=== PATIENT | male | born 1960 ===

== ENCOUNTER 2018-09-09 10:11 | Emergency (ER) | payer SELFPAY ==
[2018-09-09 10:25] VITALS: BMI 26.8
[2018-09-09 10:31] VITALS: O2SAT 98
[2018-09-09] MEDS ORDERED: Albuterol-Ipratrop 3 mg / 0.5 (3 ml) UD INH STA (10:56)
--- NOTE | 2018-09-09 11:03 | ED PDOC ---
HPI: CCC, URI, Sore Throat Time Seen by Provider: 09/09/18 10:31 Chief Complaint (Nursing): Cough, Cold, Congestion Chief Complaint (Provider): Cough History Per: Patient History/Exam Limitations: no limitations Additional Complaint(s): Pt reports cough X 2 days, unable to sleep secondary to cough, associated with nasal congestion. Denies fever, CP, difficulty breathing. Past Medical History Reviewed: Nursing Documentation, Vital Signs Vital Signs: Last Vital Signs Temp 97 F L 09/09/18 10:23 Pulse 63 09/09/18 10:23 Resp BP 130/71 09/09/18 10:23 Pulse Ox 98 09/09/18 10:29 - Medical History PMH: HTN, Hypercholesterolemia Denies: Chronic Kidney Disease - Surgical History Surgical History: Appendectomy - Family History Family History: States: Unknown Family Hx - Social History Current smoker - smoking cessation education provided: No - Immunization History Hx Tetanus Toxoid Vaccination: No Hx Influenza Vaccination: No Hx Pneumococcal Vaccination: No - Home Medications Home Medications: Ambulatory Orders Medication Instructions Recorded Carvedilol [Coreg] 25 mg PO DAILY 10/28/17 Albuterol Sulfate [Proair 90 mcg IH Q6H #1 aer.pow.ba 11/01/17 Respiclick] Azithromycin [Zithromax] 250 mg PO DAILY #7 tab 11/01/17 Fluticasone/Vilanterol [Breo 1 each IH DAILY #1 blst.w.dev 11/01/17 Ellipta 100-25 Mcg INH] amLODIPine [Norvasc] 10 mg PO DAILY #30 tab 11/01/17 predniSONE [predniSONE Tab] 10 mg PO DAILY #15 tab 11/01/17 Losartan [Cozaar] 100 mg PO DAILY 01/12/18 Oxymetazoline 0.05% [Afrin 0.05%] 1 spr NS Q12H PRN #1 bottle 01/12/18 Pseudoephedrine HCl [Sudafed] 30 mg PO QID PRN #20 tablet 01/12/18 Sulfamethoxazole/Trimethoprim 1 tab PO BID #14 tab 01/12/18 [Bactrim DS 800 mg-160 mg] Albuterol 0.083% [Albuterol 0.083% 3 ml IH Q6H PRN #30 neb 09/09/18 Inhal Alida (2.5 mg/3 ml) UD] Albuterol HFA [Ventolin HFA 90 2 puff IH [id number] PRN #1 bottle 09/09/18 mcg/actuation (8 g)] Azithromycin [Zithromax] 250 mg PO DAILY #4 tab 09/09/18 Nebulizer [Compact Compressor 1 dev XX PRN PRN #1 dev 09/09/18 Nebulizer] Prednisone 50 mg PO DAILY #4 tab 09/09/18 - Allergies Allergies/Adverse Reactions: Allergies Allergy/AdvReac Type Severity Reaction Status Date / Time seasonal Allergy Mild COUGH Uncoded 09/09/18 10:28 Curb-65 Severity Score - CURB-65 Severity Score Confusion: No Bun >19mg/dl (>7mmol/L): No Respiratory Rate greater than/equal to 30: No Systolic BP <90 or Diastolic BP less than/equal 60mmHg: No Age >64: No Curb-65 Score: 0 Percentage 30-day mortality: 0.6% Review of Systems Constitutional: Negative for: Fever, Chills Cardiovascular: Negative for: Chest Pain, Palpitations Respiratory: Positive for: Cough. Negative for: Shortness of Breath, Hemoptysis, Sputum, Wheezing Gastrointestinal: Negative for: Nausea, Vomiting, Abdominal Pain, Diarrhea Musculoskeletal: Negative for: Back Pain Skin: Negative for: Rash, Lesions Neurological: Negative for: Headache Physical Exam - Reviewed Nursing Documentation Reviewed: Yes Vital Signs Reviewed: Yes - Physical Exam Appears: Positive for: Well, No Acute Distress Skin: Positive for: Normal Color, Warm Eye Exam: Positive for: Normal appearance, EOMI, PERRL Cardiovascular/Chest: Positive for: Regular Rate, Rhythm Respiratory: Positive for: Wheezing. Negative for: Decreased Breath Sounds, Rales, Rhonchi, Respiratory Distress Extremity: Positive for: Normal ROM Neurologic/Psych: Positive for: Alert, Oriented - Laboratory Results Result Diagrams: 09/09/18 11:05 09/09/18 11:05 - ECG O2 Sat by Pulse Oximetry: 98 Pulse Ox Interpretation: Normal Medical Decision Making Medical Decision Makin yo male with cough and wheezing. - labs - EKG - CXR - Albuterol/atrovent nebs - Solumedrol Accession No. : [id number] Patient Name / ID : MANYOR TRIPATHI / [id number] Exam Date : 09/09/2018 10:50:09 ( Approved ) Study Comment : Sex / Age : M / 58Y Creator : Geovanny Baca MD Dictator : Geovanny Baca MD Floor Tech : Associate Professor Of Theatre : Geovanny Baca MD Approver2 : Report Date : 09/09/2018 12:42:32 My Comment : Date of service: 09/09/2018 HISTORY: Cough COMPARISON: No prior. TECHNIQUE: Chest PA and lateral FINDINGS: LUNGS: Hyperinflation, manifestations of COPD. No active pulmonary disease. PLEURA: No significant pleural effusion identified. No pneumothorax apparent. CARDIOVASCULAR: No aortic atherosclerotic calcification present No radiographic findings to suggest acute or significant cardiovascular disease. OSSEOUS STRUCTURES: No significant abnormalities. VISUALIZED UPPER ABDOMEN: Normal. OTHER FINDINGS: None. IMPRESSION: No active disease. Disposition - Clinical Impression Clinical Impression: Acute bronchitis - Disposition Referrals: [facility] [place] [Outside] Disposition: Routine/Home Disposition Time: 17:30 Condition: STABLE Prescriptions: Albuterol HFA [Ventolin HFA 90 mcg/actuation (8 g)] 2 puff IH [id number] PRN #1 bottle PRN Reason: Shortness Of Breath Albuterol 0.083% [Albuterol 0.083% Inhal Alida (2.5 mg/3 ml) UD] 3 ml IH Q6H PRN #30 neb PRN Reason: Shortness Of Breath Azithromycin [Zithromax] 250 mg PO DAILY #4 tab Nebulizer [Compact Compressor Nebulizer] 1 dev XX PRN PRN #1 dev PRN Reason: Shortness Of Breath Prednisone 50 mg PO DAILY #4 tab Instructions: Acute Bronchitis Forms: [facility] (Azeri) Print Language: SYRIAC
[2018-09-09] MEDS ORDERED: Albuterol-Ipratrop 3 mg / 0.5 (3 ml) UD ONE (11:16)
[2018-09-09 11:18] LABS: BASO # 0.1 K/uL (0.0-0.2); BASO % 1.2 % (0.0-2.0); EOS # 1.3 K/uL (0.0-0.7); EOS % 20.9 % (0.0-4.0); LYMPH # 1.2 K/uL (1.0-4.3); MEAN CELL VOLUME 83.1 fl (80.0-94.0); MEAN CORPUSCULAR HEMOGLOBIN 28.6 pg (27.0-31.0); MEAN CORPUSCULAR HGB CONC 34.4 g/dL (33.0-37.0); MEAN PLATELET VOLUME 8.3 fl (7.2-11.7); MONO # 0.5 K/uL (0.0-0.8); MONO % 8.1 % (0.0-10.0); NEUT # 3.2 K/uL (1.8-7.0); NEUT % 50.8 % (50.0-75.0); NRBC % 0.1 % (0.0-0.0); PLATELET COUNT 311 K/uL (130-400); RBC 5.23 Mil/uL (4.40-5.90); RED CELL DISTRIBUTION WIDTH 12.9 % (11.5-14.5); WHITE BLOOD COUNT 6.3 K/uL (4.8-10.8)
[2018-09-09 11:34] LABS: ALB/GLOB RATIO 1.2 (1.0-2.1); ALBUMIN 4.1 g/dL (3.5-5.0); ALT/SGPT 27 U/L (21-72); AST/SGOT 28 U/L (17-59); BLOOD UREA NITROGEN 18 mg/dl (9-20); CALCIUM 9.4 mg/dL (8.4-10.2); GFR NON-AFRICAN AMERICAN > 60
[2018-09-09 12:07] LABS: EOSINOPHIL 21 % (0-7); LYMPHOCYTE 22 % (20-50); MONOCYTE 11 % (0-10); NEUTROPHIL 44 % (42-75); REACTIVE LYMPHOCYTES 2 % (0-0); TOTAL CELLS COUNTED 100
[2018-09-09 12:08] LABS: PLATELET ESTIMATE NORMAL (NORMAL)
--- NOTE | 2018-09-09 12:46 | RAD ---
Date of service: 09/09/2018 HISTORY: Cough COMPARISON: No prior. TECHNIQUE: Chest PA and lateral FINDINGS: LUNGS: Hyperinflation, manifestations of COPD. No active pulmonary disease. PLEURA: No significant pleural effusion identified. No pneumothorax apparent. CARDIOVASCULAR: No aortic atherosclerotic calcification present No radiographic findings to suggest acute or significant cardiovascular disease. OSSEOUS STRUCTURES: No significant abnormalities. VISUALIZED UPPER ABDOMEN: Normal. OTHER FINDINGS: None. IMPRESSION: No active disease.
[2018-09-09] MEDS ORDERED: Azithromycin 500 MG in Sodium Chloride 0.9% 250 ML IV STA (13:43)
[2018-09-09] MEDS ORDERED: Azithromycin 500 MG IV IVPB ONE (15:05)
[2018-09-09 18:54] VITALS: BP 120/70; PULSE 72; RESP 20; TEMP 98
--- NOTE | 2018-09-09 19:01 | CARD ---
APPROVED REPORT Date of service: 09/09/2018 EKG Measurement Heart [id number] <Conclusion> Sinus bradycardia Otherwise normal ECG
== END 2018-09-09 18:53 | disposition home or self-care (01) ==
LOC: H.ER 10:11
DX: J20.9 Acute bronchitis, unspecified (principal); E78.00 Pure hypercholesterolemia, unspecified; I10 Essential (primary) hypertension
CPT/HCPCS: 71046; 80053; 85025; 87040; 93005; 94640; 96365; 96375; 99283; J0456; J2930

== ENCOUNTER 2018-10-06 11:10 | Emergency (ER) | payer SELFPAY ==
[2018-10-06 11:11] VITALS: BMI 26.8
[2018-10-06 11:22] VITALS: BP 132/64; PULSE 61; RESP 16; TEMP 97.7; O2SAT 97
--- NOTE | 2018-10-06 11:44 | ED PDOC ---
HPI: General Adult Time Seen by Provider: 10/06/18 11:42 Chief Complaint (Nursing): Cough, Cold, Congestion Chief Complaint (Provider): uri/nasal congestion/facial pain x 3 days History Per: Patient (58 y/o male h/o HTN h/o Nasal Polyps here for facial pain/nasal congestion noted x 3 days. Dnies any feversc/hills. Denies any cough/abdominal pain/vomiting. ) Past Medical History Reviewed: Historical Data, Nursing Documentation, Vital Signs Vital Signs: Last Vital Signs Temp 97.7 F 10/06/18 11:17 Pulse 61 10/06/18 11:17 Resp 16 10/06/18 11:17 BP 132/64 10/06/18 11:17 Pulse Ox 97 10/06/18 11:17 - Medical History PMH: HTN, Hypercholesterolemia Denies: Chronic Kidney Disease - Surgical History Surgical History: Appendectomy - Family History Family History: States: Unknown Family Hx - Immunization History Hx Tetanus Toxoid Vaccination: No Hx Influenza Vaccination: No Hx Pneumococcal Vaccination: No - Home Medications Home Medications: Ambulatory Orders Medication Instructions Recorded Carvedilol [Coreg] 25 mg PO DAILY 10/28/17 Albuterol Sulfate [Proair 90 mcg IH Q6H #1 aer.pow.ba 11/01/17 Respiclick] Azithromycin [Zithromax] 250 mg PO DAILY #7 tab 11/01/17 Fluticasone/Vilanterol [Breo 1 each IH DAILY #1 blst.w.dev 11/01/17 Ellipta 100-25 Mcg INH] amLODIPine [Norvasc] 10 mg PO DAILY #30 tab 11/01/17 predniSONE [predniSONE Tab] 10 mg PO DAILY #15 tab 11/01/17 Losartan [Cozaar] 100 mg PO DAILY 01/12/18 Oxymetazoline 0.05% [Afrin 0.05%] 1 spr NS Q12H PRN #1 bottle 01/12/18 Pseudoephedrine HCl [Sudafed] 30 mg PO QID PRN #20 tablet 01/12/18 Sulfamethoxazole/Trimethoprim 1 tab PO BID #14 tab 01/12/18 [Bactrim DS 800 mg-160 mg] Albuterol 0.083% [Albuterol 0.083% 3 ml IH Q6H PRN #30 neb 09/09/18 Inhal Alida (2.5 mg/3 ml) UD] Albuterol HFA [Ventolin HFA 90 2 puff IH [id number] PRN #1 bottle 09/09/18 mcg/actuation (8 g)] Azithromycin [Zithromax] 250 mg PO DAILY #4 tab 09/09/18 Nebulizer [Compact Compressor 1 dev XX PRN PRN #1 dev 09/09/18 Nebulizer] Prednisone 50 mg PO DAILY #4 tab 09/09/18 Amoxicillin/Clavulanate [Augmentin 1 tab PO BID #20 tab 10/06/18 875 MG-125 MG] - Allergies Allergies/Adverse Reactions: Allergies Allergy/AdvReac Type Severity Reaction Status Date / Time seasonal Allergy Mild COUGH Uncoded 10/06/18 11:14 Review of Systems ROS Statement: Except As Marked, All Systems Reviewed And Found Negative ENT: Positive for: Nose Congestion Physical Exam - Reviewed Nursing Documentation Reviewed: Yes Vital Signs Reviewed: Yes - Physical Exam Appears: Positive for: Well, Non-toxic, No Acute Distress Head Exam: Positive for: ATRAUMATIC, NORMAL INSPECTION, NORMOCEPHALIC Skin: Positive for: Normal Color, Warm, DRY Eye Exam: Positive for: EOMI, Normal appearance, PERRL ENT: Positive for: Nasal Congestion Neck: Positive for: Normal, Painless ROM Cardiovascular/Chest: Positive for: Regular Rate, Rhythm Respiratory: Positive for: CNT, Normal Breath Sounds Gastrointestinal/Abdominal: Positive for: Normal Exam, Soft Back: Positive for: Normal Inspection Extremity: Positive for: Normal ROM Neurologic/Psych: Positive for: Alert, Oriented - ECG O2 Sat by Pulse Oximetry: 97 Disposition - Clinical Impression Clinical Impression: Sinusitis, acute - Patient ED Disposition Is Patient to be Admitted: No - Disposition Disposition: Routine/Home Disposition Time: 11:44 Condition: FAIR Additional Instructions: [place] [facility] [employer]" PARA AYUDAR LE CON SIMPTOMAS Prescriptions: Amoxicillin/Clavulanate [Augmentin 875 MG-125 MG] 1 tab PO BID #20 tab Instructions: Sinusitis, Adult (DC) Forms: [facility] ED School/Work Excuse Print Language: THAI
== END 2018-10-06 12:13 | disposition home or self-care (01) ==
LOC: H.ER 11:10
DX: J01.90 Acute sinusitis, unspecified (principal); E78.00 Pure hypercholesterolemia, unspecified; I10 Essential (primary) hypertension

== ENCOUNTER 2018-11-10 09:59 | Emergency (ER) | payer SELFPAY ==
[2018-11-10 10:25] VITALS: BMI 26.6
[2018-11-10] MEDS ORDERED: Albuterol-Ipratrop 3 mg / 0.5 (3 ml) UD INH STA (12:40)
[2018-11-10] MEDS ORDERED: Albuterol-Ipratrop 3 mg / 0.5 (3 ml) UD ONE (13:00)
--- NOTE | 2018-11-10 14:03 | RAD ---
Date of service: 11/10/2018 HISTORY: Cough COMPARISON: 09/09/2018. TECHNIQUE: Chest PA and lateral FINDINGS: LINES AND TUBES: None. LUNG AND PLEURA: The lungs are hyperinflated and there is peribronchial thickening with chronic changes in both lungs. No pleural effusion or pneumothorax. HEART AND MEDIASTINUM: The heart is not enlarged. There are aortic atherosclerotic calcification present. The hilar and mediastinal contours are within normal limits. SKELETAL STRUCTURES: The bony structures are within normal limits for the patient's age. VISUALIZED UPPER ABDOMEN: Normal. OTHER FINDINGS: None. IMPRESSION: No active pulmonary disease. COPD.
--- NOTE | 2018-11-10 14:46 | ED PDOC ---
HPI: Influenza Time Seen by Provider: 11/10/18 11:34 Chief Complaint: Cough, Cold, Congestion Chief Complaint (Provider): Cough, on/off for months History Per: Patient Exam Limitations: no limitations Have you had recent travel within the past 21 days to any of: No Symptoms include: cough. denies: fever, headache, bodyaches, sore throat, nasal congestion, vomiting, diarrhea, syncope, chest pain, difficulty breathing, seizure, rash, blurry vision, other Sick Contacts (Context): None Hx Influenza Vaccination: No Risk factors for flu complications: No: adult > 65 years, child < 5 years, child < 2 years, , chronic lung disease, endocrine disorders, heart disease, renal disease, metabolic disease, hematologic disease, immunosuppression, obesity (BMI > 40), detention resident, <19 years of age on pest locator ASA therapy, neurologic disease, or Additional complaint(s):: 58 yo male with no medical problems presents for evaluation of cough x 3 days. Pt states it has been on/off for a few months. Pt denies recent travel. Pt denies smoking history. Pt states he has not seen his PMD for this. Past Medical History Reviewed: Historical Data, Nursing Documentation, Vital Signs Vital Signs: Last Vital Signs Temp 97.3 F L 11/10/18 10:25 Pulse 62 11/10/18 10:25 Resp 20 11/10/18 10:25 BP 115/65 11/10/18 10:25 Pulse Ox 96 11/10/18 10:25 - Medical History PMH: HTN, Hypercholesterolemia Denies: Chronic Kidney Disease - Surgical History Surgical History: Appendectomy - Family History Family History: States: Unknown Family Hx - Living Arrangements Living Arrangements: With Family - Social History Current smoker - smoking cessation education provided: No Alcohol: None Drugs: Denies - Immunization History Hx Tetanus Toxoid Vaccination: No Hx Influenza Vaccination: No Hx Pneumococcal Vaccination: No - Home Medications Home Medications: Ambulatory Orders Medication Instructions Recorded Carvedilol [Coreg] 25 mg PO DAILY 10/28/17 Albuterol Sulfate [Proair 90 mcg IH Q6H #1 aer.pow.ba 11/01/17 Respiclick] Azithromycin [Zithromax] 250 mg PO DAILY #7 tab 11/01/17 Fluticasone/Vilanterol [Breo 1 each IH DAILY #1 blst.w.dev 11/01/17 Ellipta 100-25 Mcg INH] amLODIPine [Norvasc] 10 mg PO DAILY #30 tab 11/01/17 predniSONE [predniSONE Tab] 10 mg PO DAILY #15 tab 11/01/17 Losartan [Cozaar] 100 mg PO DAILY 01/12/18 Oxymetazoline 0.05% [Afrin 0.05%] 1 spr NS Q12H PRN #1 bottle 01/12/18 Pseudoephedrine HCl [Sudafed] 30 mg PO QID PRN #20 tablet 01/12/18 Sulfamethoxazole/Trimethoprim 1 tab PO BID #14 tab 01/12/18 [Bactrim DS 800 mg-160 mg] Albuterol 0.083% [Albuterol 0.083% 3 ml IH Q6H PRN #30 neb 09/09/18 Inhal Alida (2.5 mg/3 ml) UD] Albuterol HFA [Ventolin HFA 90 2 puff IH [id number] PRN #1 bottle 09/09/18 mcg/actuation (8 g)] Azithromycin [Zithromax] 250 mg PO DAILY #4 tab 09/09/18 Nebulizer [Compact Compressor 1 dev XX PRN PRN #1 dev 09/09/18 Nebulizer] Prednisone 50 mg PO DAILY #4 tab 09/09/18 Amoxicillin/Clavulanate [Augmentin 1 tab PO BID #20 tab 10/06/18 875 MG-125 MG] Albuterol HFA [Ventolin HFA 90 1 puff IH BID PRN #1 unit 11/10/18 mcg/actuation (8 g)] - Allergies Allergies/Adverse Reactions: Allergies Allergy/AdvReac Type Severity Reaction Status Date / Time seasonal Allergy Mild COUGH Uncoded 11/10/18 11:33 Review of Systems ROS Statement: Except As Marked, All Systems Reviewed And Found Negative Constitutional: Negative for: Fever Cardiovascular: Negative for: Chest Pain, Palpitations Respiratory: Positive for: Cough. Negative for: Shortness of Breath, Sputum Physical Exam - Reviewed Nursing Documentation Reviewed: Yes Vital Signs Reviewed: Yes - Physical Exam Appears: Positive for: Well, Non-toxic, No Acute Distress Head Exam: Positive for: ATRAUMATIC, NORMAL INSPECTION, NORMOCEPHALIC Skin: Positive for: Normal Color, Warm, DRY Eye Exam: Positive for: Normal appearance ENT: Positive for: Normal ENT Inspection Neck: Positive for: Normal Cardiovascular/Chest: Positive for: Regular Rate, Rhythm Respiratory: Positive for: Wheezing. Negative for: Accessory Muscle Use, Respiratory Distress Back: Positive for: Normal Inspection Extremity: Positive for: Normal ROM Neurologic/Psych: Positive for: Alert, Oriented, Gait Medical Decision Making Medical Decision Making: CXR - no acute cardiopulmonary disease. 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 - ECG O2 Sat by Pulse Oximetry: 96 Disposition - Clinical Impression Clinical Impression: Chronic cough - Disposition Referrals: Francisco J Stoll MD [Staff Provider] - Disposition: Routine/Home Disposition Time: 14:47 Condition: STABLE Prescriptions: Albuterol HFA [Ventolin HFA 90 mcg/actuation (8 g)] 1 puff IH BID PRN #1 unit PRN Reason: cough, wheezing, SOB Instructions: Cough, Adult (DC) Forms: [facility] (Bulgarian)
[2018-11-10 15:05] VITALS: BP 119/73; PULSE 52; RESP 16; TEMP 98.8; O2SAT 98
== END 2018-11-10 15:13 | disposition home or self-care (01) ==
LOC: H.ER 09:59
DX: R05 Cough (principal); I10 Essential (primary) hypertension; J44.9 Chronic obstructive pulmonary disease, unspecified; Z79.899 Other long term (current) drug therapy; E78.00 Pure hypercholesterolemia, unspecified

== ENCOUNTER 2018-11-18 09:23 | Emergency (ER) | payer SELFPAY ==
[2018-11-18 09:24] VITALS: BMI 26.6
[2018-11-18] MEDS ORDERED: Albuterol-Ipratrop 3 mg / 0.5 (3 ml) UD INH STA ×3 (11:05→12:00)
--- NOTE | 2018-11-18 11:09 | ED PDOC ---
HPI: General Adult <AlissonSparkle Espinoza - Last Filed: 11/18/18 13:13> Chief Complaint (Provider): cough/sob History Per: Patient (58 y/o male here with sob/difficulty breathing on and off since last ED visit 11/10/2018. Had CXR at that time hyperinflation noted. denies any fevers/chills. Has been using albuterol inhaler without improvement of symptoms.) <Ania Orlando - Last Filed: 11/18/18 13:21> Time Seen by Provider: 11/18/18 11:07 Chief Complaint (Nursing): Cough, Cold, Congestion Past Medical History Vital Signs: Last Vital Signs Temp 98.2 F 11/18/18 10:13 Pulse 65 11/18/18 10:13 Resp 20 11/18/18 10:13 BP 115/68 11/18/18 10:13 Pulse Ox 95 11/18/18 11:48 <AlissonSparkle Espinoza - Last Filed: 11/18/18 13:13> Reviewed: Historical Data, Nursing Documentation, Vital Signs Vital Signs: Last Vital Signs Temp 98.2 F 11/18/18 10:13 Pulse 65 11/18/18 10:13 Resp 20 11/18/18 10:13 BP 115/68 11/18/18 10:13 Pulse Ox 95 11/18/18 10:13 - Medical History PMH: HTN, Hypercholesterolemia Denies: Chronic Kidney Disease - Surgical History Surgical History: Appendectomy - Family History Family History: States: Unknown Family Hx - Immunization History Hx Tetanus Toxoid Vaccination: No Hx Influenza Vaccination: No Hx Pneumococcal Vaccination: No <Ania Orlando - Last Filed: 11/18/18 13:21> - Home Medications Home Medications: Ambulatory Orders Medication Instructions Recorded Carvedilol [Coreg] 25 mg PO DAILY 10/28/17 Albuterol Sulfate [Proair 90 mcg IH Q6H #1 aer.pow.ba 11/01/17 Respiclick] Azithromycin [Zithromax] 250 mg PO DAILY #7 tab 11/01/17 Fluticasone/Vilanterol [Breo 1 each IH DAILY #1 blst.w.dev 11/01/17 Ellipta 100-25 Mcg INH] amLODIPine [Norvasc] 10 mg PO DAILY #30 tab 11/01/17 predniSONE [predniSONE Tab] 10 mg PO DAILY #15 tab 11/01/17 Losartan [Cozaar] 100 mg PO DAILY 01/12/18 Oxymetazoline 0.05% [Afrin 0.05%] 1 spr NS Q12H PRN #1 bottle 01/12/18 Pseudoephedrine HCl [Sudafed] 30 mg PO QID PRN #20 tablet 01/12/18 Sulfamethoxazole/Trimethoprim 1 tab PO BID #14 tab 01/12/18 [Bactrim DS 800 mg-160 mg] Albuterol 0.083% [Albuterol 0.083% 3 ml IH Q6H PRN #30 neb 09/09/18 Inhal Alida (2.5 mg/3 ml) UD] Albuterol HFA [Ventolin HFA 90 2 puff IH [id number] PRN #1 bottle 09/09/18 mcg/actuation (8 g)] Azithromycin [Zithromax] 250 mg PO DAILY #4 tab 09/09/18 Nebulizer [Compact Compressor 1 dev XX PRN PRN #1 dev 09/09/18 Nebulizer] Prednisone 50 mg PO DAILY #4 tab 09/09/18 Amoxicillin/Clavulanate [Augmentin 1 tab PO BID #20 tab 10/06/18 875 MG-125 MG] Albuterol HFA [Ventolin HFA 90 1 puff IH BID PRN #1 unit 11/10/18 mcg/actuation (8 g)] Albuterol 0.083% [Albuterol 0.083% 2.5 mg IH Q6 PRN #100 neb 11/18/18 Inhal Alida (2.5 mg/3 ml) UD] Azithromycin [Zithromax] 250 mg PO DAILY #6 tab 11/18/18 Prednisone [Deltasone] 3 tab PO DAILY #12 tablet 11/18/18 - Allergies Allergies/Adverse Reactions: Allergies Allergy/AdvReac Type Severity Reaction Status Date / Time seasonal Allergy Mild COUGH Uncoded 11/10/18 11:33 Review of Systems ROS Statement: Except As Marked, All Systems Reviewed And Found Negative Respiratory: Positive for: Cough, Shortness of Breath <Ania Orlando - Last Filed: 11/18/18 13:21> Physical Exam - Reviewed Nursing Documentation Reviewed: Yes Vital Signs Reviewed: Yes - Physical Exam Appears: Positive for: Well, Non-toxic, No Acute Distress Head Exam: Positive for: ATRAUMATIC, NORMAL INSPECTION, NORMOCEPHALIC Skin: Positive for: Normal Color, Warm, DRY Eye Exam: Positive for: EOMI, Normal appearance, PERRL ENT: Positive for: Normal ENT Inspection Neck: Positive for: Normal, Painless ROM Cardiovascular/Chest: Positive for: Regular Rate, Rhythm Respiratory: Positive for: Wheezing Gastrointestinal/Abdominal: Positive for: Normal Exam, Soft Back: Positive for: Normal Inspection Extremity: Positive for: Normal ROM Neurologic/Psych: Positive for: Alert, Oriented <Ania Orlando - Last Filed: 11/18/18 13:21> - ECG O2 Sat by Pulse Oximetry: 95 - Progress ED Course And Treament: prednisone 60mg x 1 dose DUONEB X 1 DOSE <Ania Orlando - Last Filed: 11/18/18 13:21> Disposition - Patient ED Disposition Is Patient to be Admitted: No - Disposition Disposition: Routine/Home <[employer] - Last Filed: 11/18/18 13:13> - Patient ED Disposition Is Patient to be Admitted: No - Disposition Disposition: Routine/Home Disposition Time: 13:21 <Ania Orlando - Last Filed: 11/18/18 13:21> - Clinical Impression Clinical Impression: Asthma exacerbation, Bronchitis - Disposition Referrals: Francisco J Stoll MD [Staff Provider] - [facility] [Outside] Condition: FAIR Prescriptions: Albuterol 0.083% [Albuterol 0.083% Inhal Alida (2.5 mg/3 ml) UD] 2.5 mg IH Q6 PRN #100 neb PRN Reason: Shortness Of Breath Azithromycin [Zithromax] 250 mg PO DAILY #6 tab Prednisone [Deltasone] 3 tab PO DAILY #12 tablet Instructions: Asthma, Adult (DC) Forms: [facility] ED School/Work Excuse Print Language: CITIZ[place]
[2018-11-18] MEDS ORDERED: Albuterol-Ipratrop 3 mg / 0.5 (3 ml) UD ONE (11:48)
[2018-11-18 13:42] VITALS: BP 111/62; PULSE 60; RESP 16; TEMP 98.1; O2SAT 96
== END 2018-11-18 13:43 | disposition home or self-care (01) ==
LOC: H.ER 09:23
DX: J45.901 Unspecified asthma with (acute) exacerbation (principal); J40 Bronchitis, not specified as acute or chronic; I10 Essential (primary) hypertension; E78.00 Pure hypercholesterolemia, unspecified; Z79.899 Other long term (current) drug therapy

== ENCOUNTER 2019-01-12 13:42 | Emergency (ER) | payer SELFPAY ==
[2019-01-12 13:42] VITALS: BMI 26.6
[2019-01-12 14:01] VITALS: PULSE 65; TEMP 97.8
[2019-01-12] MEDS ORDERED: Albuterol-Ipratrop 3 mg / 0.5 (3 ml) UD INH STA ×3 (14:19→18:58)
[2019-01-12] MEDS ORDERED: Albuterol-Ipratrop 3 mg / 0.5 (3 ml) UD ONE ×3 (14:27→19:24)
--- NOTE | 2019-01-12 14:39 | ED PDOC ---
HPI: Influenza Time Seen by Provider: 01/12/19 14:16 Chief Complaint: Cough, Cold, Congestion Chief Complaint (Provider): cough, congestion History Per: Patient, Air Moving Technician (russell [id number]) Have you had recent travel within the past 21 days to any of: No Onset/Duration Of Symptoms: Days (4-5), Intermittent Episodes Risk factors for flu complications: Yes: chronic lung disease Additional complaint(s):: 58yo male presents with persistent ongoing cough with mild dyspnea, no fever, body aches, hemoptysis, headache or syncope. Prior visits reviewed as available, recent clinic and ED visits for similar. Past Medical History Reviewed: Historical Data, Nursing Documentation, Vital Signs Vital Signs: Last Vital Signs Temp 97.8 F 01/12/19 13:56 Pulse 65 01/12/19 13:56 Resp 16 01/12/19 13:56 BP 165/77 H 01/12/19 13:56 Pulse Ox 96 01/12/19 13:56 - Medical History PMH: Asthma, HTN, Hypercholesterolemia Denies: Chronic Kidney Disease - Surgical History Surgical History: Appendectomy - Family History Family History: States: Unknown Family Hx - Social History Current smoker - smoking cessation education provided: No - Immunization History Hx Tetanus Toxoid Vaccination: No Hx Influenza Vaccination: No Hx Pneumococcal Vaccination: No - Home Medications Home Medications: Ambulatory Orders Medication Instructions Recorded Carvedilol [Coreg] 25 mg PO DAILY 10/28/17 Albuterol Sulfate [Proair 90 mcg IH Q6H #1 aer.pow.ba 11/01/17 Respiclick] Azithromycin [Zithromax] 250 mg PO DAILY #7 tab 11/01/17 Fluticasone/Vilanterol [Breo 1 each IH DAILY #1 blst.w.dev 11/01/17 Ellipta 100-25 Mcg INH] amLODIPine [Norvasc] 10 mg PO DAILY #30 tab 11/01/17 predniSONE [predniSONE Tab] 10 mg PO DAILY #15 tab 11/01/17 Losartan [Cozaar] 100 mg PO DAILY 01/12/18 Oxymetazoline 0.05% [Afrin 0.05%] 1 spr NS Q12H PRN #1 bottle 01/12/18 Pseudoephedrine HCl [Sudafed] 30 mg PO QID PRN #20 tablet 01/12/18 Sulfamethoxazole/Trimethoprim 1 tab PO BID #14 tab 01/12/18 [Bactrim DS 800 mg-160 mg] Albuterol 0.083% [Albuterol 0.083% 3 ml IH Q6H PRN #30 neb 09/09/18 Inhal Alida (2.5 mg/3 ml) UD] Albuterol HFA [Ventolin HFA 90 2 puff IH [id number] PRN #1 bottle 09/09/18 mcg/actuation (8 g)] Azithromycin [Zithromax] 250 mg PO DAILY #4 tab 09/09/18 Nebulizer [Compact Compressor 1 dev XX PRN PRN #1 dev 09/09/18 Nebulizer] Prednisone 50 mg PO DAILY #4 tab 09/09/18 Amoxicillin/Clavulanate [Augmentin 1 tab PO BID #20 tab 10/06/18 875 MG-125 MG] Albuterol HFA [Ventolin HFA 90 1 puff IH BID PRN #1 unit 11/10/18 mcg/actuation (8 g)] Albuterol 0.083% [Albuterol 0.083% 2.5 mg IH Q6 PRN #100 neb 11/18/18 Inhal Alida (2.5 mg/3 ml) UD] Azithromycin [Zithromax] 250 mg PO DAILY #6 tab 11/18/18 Prednisone [Deltasone] 3 tab PO DAILY #12 tablet 11/18/18 Albuterol 0.083% [Albuterol 0.083% 2.5 mg IH Q4 PRN #20 neb 01/12/19 Inhal Alida (2.5 mg/3 ml) UD] Albuterol HFA [Ventolin HFA 90 1 - 2 puff IH Q4 PRN #1 inhaler 01/12/19 mcg/actuation (8 g)] Azithromycin [Zithromax] 250 mg PO DAILY #6 tab 01/12/19 Prednisone 50 mg PO DAILY #4 tab 01/12/19 - Allergies Allergies/Adverse Reactions: Allergies Allergy/AdvReac Type Severity Reaction Status Date / Time seasonal Allergy Mild COUGH Uncoded 01/12/19 14:01 Review of Systems Constitutional: Negative for: Fever Cardiovascular: Negative for: Chest Pain, Orthopnea Respiratory: Positive for: Cough, Shortness of Breath, Wheezing Gastrointestinal: Negative for: Abdominal Pain Genitourinary Male: Negative for: Dysuria Musculoskeletal: Negative for: Back Pain Skin: Negative for: Rash Neurological: Negative for: Weakness, Numbness Psych: Negative for: Suicidal ideation Physical Exam - Reviewed Nursing Documentation Reviewed: Yes Vital Signs Reviewed: Yes - Physical Exam Appears: Positive for: Well, Non-toxic, No Acute Distress Head Exam: Positive for: ATRAUMATIC, NORMAL INSPECTION, NORMOCEPHALIC Skin: Positive for: Normal Color, Warm, DRY Eye Exam: Positive for: EOMI, Normal appearance, PERRL ENT: Positive for: Normal ENT Inspection Neck: Positive for: Normal, Painless ROM Cardiovascular/Chest: Positive for: Regular Rate, Rhythm Respiratory: Positive for: Wheezing. Negative for: Accessory Muscle Use, Respiratory Distress Gastrointestinal/Abdominal: Positive for: Normal Exam, Soft. Negative for: Tenderness Back: Positive for: Normal Inspection Extremity: Positive for: Normal ROM. Negative for: Pedal Edema Neurologic/Psych: Positive for: Alert, Oriented Medical Decision Making Medical Decision Making: pt given bronchodilators and solumedrol in ED w/ gradual improvement, SPO2 remained >94% and HR stable. Azithromycin initiated given CXR report which was reviewed. Stable for outpatient treatment given clinical appearance, diagnostics, norrmal resp effort and access to clinic for followup care. explained findings in turkish via alley tender [id number] - Laboratory Results Result Diagrams: 01/12/19 14:50 01/12/19 14:50 - ECG O2 Sat by Pulse Oximetry: 96 Disposition - Clinical Impression Clinical Impression: Asthma, Pneumonia - Patient ED Disposition Is Patient to be Admitted: No - Disposition Referrals: [facility] [Outside] Disposition Time: 18:00 Condition: STABLE Additional Instructions: Take antibiotics as directed. Prescriptions: Albuterol 0.083% [Albuterol 0.083% Inhal Alida (2.5 mg/3 ml) UD] 2.5 mg IH Q4 PRN #20 neb PRN Reason: Wheezing Albuterol HFA [Ventolin HFA 90 mcg/actuation (8 g)] 1 - 2 puff IH Q4 PRN #1 inhaler PRN Reason: Shortness Of Breath Azithromycin [Zithromax] 250 mg PO DAILY #6 tab Prednisone 50 mg PO DAILY #4 tab Instructions: Asthma, Adult (DC), Pneumonia, Adult (DC), Avoiding Asthma Triggers Forms: [employer] (Chinese) Print Language: BELARUSIAN
[2019-01-12 15:08] LABS: BASO # 0.1 K/uL (0.0-0.2); BASO % 0.8 % (0.0-2.0); EOS # 1.5 K/uL (0.0-0.7); EOS % 20.8 % (0.0-4.0); HEMOGLOBIN 13.8 g/dL (12.0-18.0); LYMPH # 1.4 K/uL (1.0-4.3); LYMPH % 20.1 % (20.0-40.0); MEAN CELL VOLUME 83.3 fl (80.0-94.0); MEAN CORPUSCULAR HEMOGLOBIN 28.3 pg (27.0-31.0); MEAN PLATELET VOLUME 8.8 fl (7.2-11.7); MONO # 0.6 K/uL (0.0-0.8); MONO % 8.6 % (0.0-10.0); NEUT # 3.6 K/uL (1.8-7.0); NEUT % 49.7 % (50.0-75.0); NRBC % 0.1 % (0.0-0.0); PLATELET COUNT 299 K/uL (130-400); RBC 4.86 Mil/uL (4.40-5.90); RED CELL DISTRIBUTION WIDTH 13.1 % (11.5-14.5); WHITE BLOOD COUNT 7.1 K/uL (4.8-10.8)
[2019-01-12 15:17] LABS: ALB/GLOB RATIO 1.3 (1.0-2.1); ALBUMIN 4.2 g/dL (3.5-5.0); ALT/SGPT 28 U/L (21-72); AST/SGOT 24 U/L (17-59); BLOOD UREA NITROGEN 20 mg/dl (9-20); CALCIUM 9.6 mg/dL (8.4-10.2); GFR NON-AFRICAN AMERICAN > 60
--- NOTE | 2019-01-12 16:23 | RAD ---
Date of service: 01/12/2019 HISTORY: cough COMPARISON: 11/10/2018 TECHNIQUE: Chest PA and lateral FINDINGS: LUNGS: There is interval almost finger-like opacity projecting in the left upper lung zone-mucoid impaction or subsegmental areas of atelectasis and/or infiltrate are compatible with this interval change. Right lung is clear PLEURA: No significant pleural effusion identified. No pneumothorax apparent. CARDIOVASCULAR: There is presence of aortic atherosclerotic calcification on x-ray. Normal cardiac size. No significant appearing pulmonary venous congestion. OSSEOUS STRUCTURES: Thoraco lumbar spondylosis. VISUALIZED UPPER ABDOMEN: Normal. OTHER FINDINGS: None. IMPRESSION: Interval tubular-almost finger like left upper opacity -mucoid impaction versus subsegmental atelectasis and/or atypical appearing infiltrate considerations. Follow-up recommended. Comments: Study marked for PA review .
--- NOTE | 2019-01-12 16:49 | CARD ---
APPROVED REPORT Date of service: 01/12/2019 EKG Measurement Heart [id number] <Conclusion> Sinus bradycardia Otherwise normal ECG
[2019-01-12 18:27] LABS: EOSINOPHIL 16 % (0-7); LYMPHOCYTE 22 % (20-50); MONOCYTE 8 % (0-10); NEUTROPHIL 54 % (42-75); PLATELET ESTIMATE NORMAL (NORMAL); TOTAL CELLS COUNTED 100
[2019-01-12 18:28] LABS: HYPOCHROMIC SLIGHT; MICROCYTOSIS SLIGHT
--- NOTE | 2019-01-12 20:15 | ED PDOC ---
HPI: Asthma Time Seen by Provider: 01/12/19 14:16 Chief Complaint (Nursing): Cough, Cold, Congestion Chief Complaint (Provider): SOB, cough History Per: Patient, Statistician Theoretical (russell [id number]) Current Symptoms Are (Timing): Still Present Associated Symptoms: Cough Precipitating Factors: Ran Out Of Medications Severity: Mild Additional Complaint(s): 58yo male c/o ongoing cough, chest tightness and wheeze, now intermittent for several weeks. Denies hemoptysis, leg edema, fever or chills. Taking medications intermittently but not this week. Prior records reviewed as available. Past Medical History Reviewed: Historical Data, Nursing Documentation, Vital Signs Vital Signs: Last Vital Signs Temp 97.8 F 01/12/19 13:56 Pulse 65 01/12/19 13:56 Resp 16 01/12/19 13:56 BP 165/77 H 01/12/19 13:56 Pulse Ox 94 L 01/12/19 17:40 - Medical History PMH: Asthma, HTN, Hypercholesterolemia Denies: Chronic Kidney Disease - Surgical History Surgical History: Appendectomy - Family History Family History: States: Unknown Family Hx - Living Arrangements Living Arrangements: With Family - Immunization History Hx Tetanus Toxoid Vaccination: No Hx Influenza Vaccination: No Hx Pneumococcal Vaccination: No - Home Medications Home Medications: Ambulatory Orders Medication Instructions Recorded Carvedilol [Coreg] 25 mg PO DAILY 10/28/17 Albuterol Sulfate [Proair 90 mcg IH Q6H #1 aer.pow.ba 11/01/17 Respiclick] Azithromycin [Zithromax] 250 mg PO DAILY #7 tab 11/01/17 Fluticasone/Vilanterol [Breo 1 each IH DAILY #1 blst.w.dev 11/01/17 Ellipta 100-25 Mcg INH] amLODIPine [Norvasc] 10 mg PO DAILY #30 tab 11/01/17 predniSONE [predniSONE Tab] 10 mg PO DAILY #15 tab 11/01/17 Losartan [Cozaar] 100 mg PO DAILY 01/12/18 Oxymetazoline 0.05% [Afrin 0.05%] 1 spr NS Q12H PRN #1 bottle 01/12/18 Pseudoephedrine HCl [Sudafed] 30 mg PO QID PRN #20 tablet 01/12/18 Sulfamethoxazole/Trimethoprim 1 tab PO BID #14 tab 01/12/18 [Bactrim DS 800 mg-160 mg] Albuterol 0.083% [Albuterol 0.083% 3 ml IH Q6H PRN #30 neb 09/09/18 Inhal Alida (2.5 mg/3 ml) UD] Albuterol HFA [Ventolin HFA 90 2 puff IH [id number] PRN #1 bottle 09/09/18 mcg/actuation (8 g)] Azithromycin [Zithromax] 250 mg PO DAILY #4 tab 09/09/18 Nebulizer [Compact Compressor 1 dev XX PRN PRN #1 dev 09/09/18 Nebulizer] Prednisone 50 mg PO DAILY #4 tab 09/09/18 Amoxicillin/Clavulanate [Augmentin 1 tab PO BID #20 tab 10/06/18 875 MG-125 MG] Albuterol HFA [Ventolin HFA 90 1 puff IH BID PRN #1 unit 11/10/18 mcg/actuation (8 g)] Albuterol 0.083% [Albuterol 0.083% 2.5 mg IH Q6 PRN #100 neb 11/18/18 Inhal Alida (2.5 mg/3 ml) UD] Azithromycin [Zithromax] 250 mg PO DAILY #6 tab 11/18/18 Prednisone [Deltasone] 3 tab PO DAILY #12 tablet 11/18/18 Albuterol 0.083% [Albuterol 0.083% 2.5 mg IH Q4 PRN #20 neb 01/12/19 Inhal Alida (2.5 mg/3 ml) UD] Albuterol HFA [Ventolin HFA 90 1 - 2 puff IH Q4 PRN #1 inhaler 01/12/19 mcg/actuation (8 g)] Azithromycin [Zithromax] 250 mg PO DAILY #6 tab 01/12/19 Prednisone 50 mg PO DAILY #4 tab 01/12/19 - Allergies Allergies/Adverse Reactions: Allergies Allergy/AdvReac Type Severity Reaction Status Date / Time seasonal Allergy Mild COUGH Uncoded 01/12/19 14:01 Review of Systems ROS Statement: Except As Marked, All Systems Reviewed And Found Negative Constitutional: Negative for: Fever Eyes: Negative for: Vision Change Cardiovascular: Negative for: Chest Pain Respiratory: Positive for: Cough, Shortness of Breath, SOB with Exertion, Wheezing Gastrointestinal: Negative for: Nausea, Abdominal Pain Genitourinary Male: Negative for: Dysuria Musculoskeletal: Negative for: Neck Pain, Arm Pain Skin: Negative for: Rash Neurological: Negative for: Weakness, Confusion Physical Exam - Reviewed Nursing Documentation Reviewed: Yes Vital Signs Reviewed: Yes - Physical Exam Appears: Positive for: Well, Non-toxic, No Acute Distress Head Exam: Positive for: ATRAUMATIC, NORMAL INSPECTION, NORMOCEPHALIC Skin: Positive for: Normal Color, Warm, DRY Eye Exam: Positive for: EOMI, Normal appearance, PERRL ENT: Positive for: Normal ENT Inspection Neck: Positive for: Normal, Painless ROM Cardiovascular/Chest: Positive for: Regular Rate, Rhythm Respiratory: Positive for: Normal Breath Sounds, Wheezing. Negative for: Rhonchi, Respiratory Distress Gastrointestinal/Abdominal: Positive for: Normal Exam, Soft Back: Positive for: Normal Inspection Extremity: Positive for: Normal ROM Neurologic/Psych: Positive for: Alert, Oriented - Laboratory Results Result Diagrams: 01/12/19 14:50 01/12/19 14:50 Lab Results: Troponin I < 0.0120 ng/mL (0.00-0.120) 01/12/19 14:50 NT-Pro-B Natriuret Pep 49.0 pg/ml (0-900) 01/12/19 14:50 Total Bilirubin 0.4 mg/dl (0.2-1.3) 01/12/19 14:50 AST 24 U/L (17-59) 01/12/19 14:50 ALT 28 U/L (21-72) 01/12/19 14:50 Alkaline Phosphatase 55 U/L (38-126) 01/12/19 14:50 Total Protein 7.4 G/DL (6.3-8.2) 01/12/19 14:50 Albumin 4.2 g/dL (3.5-5.0) 01/12/19 14:50 Globulin 3.3 gm/dL (2.2-3.9) 01/12/19 14:50 Albumin/Globulin Ratio 1.3 (1.0-2.1) 01/12/19 14:50 - ECG O2 Sat by Pulse Oximetry: 96 Disposition - Clinical Impression Clinical Impression: Asthma, Pneumonia - Patient ED Disposition Is Patient to be Admitted: No - Disposition Referrals: [facility] [Outside] Disposition Time: 20:15 Condition: STABLE Additional Instructions: Take antibiotics as directed. Prescriptions: Albuterol 0.083% [Albuterol 0.083% Inhal Ailda (2.5 mg/3 ml) UD] 2.5 mg IH Q4 PRN #20 neb PRN Reason: Wheezing Albuterol HFA [Ventolin HFA 90 mcg/actuation (8 g)] 1 - 2 puff IH Q4 PRN #1 inhaler PRN Reason: Shortness Of Breath Azithromycin [Zithromax] 250 mg PO DAILY #6 tab Prednisone 50 mg PO DAILY #4 tab Instructions: Asthma, Adult (DC), Avoiding Asthma Triggers Forms: [facility] (Tajik) Print Language: WOLOF
[2019-01-12 20:33] VITALS: BP 118/68; RESP 20
[2019-01-15 21:27] VITALS: O2SAT 96
== END 2019-01-12 20:34 | disposition home or self-care (01) ==
LOC: H.ER 13:42
DX: J45.909 Unspecified asthma, uncomplicated (principal); J18.9 Pneumonia, unspecified organism; I10 Essential (primary) hypertension; Z79.899 Other long term (current) drug therapy; E78.00 Pure hypercholesterolemia, unspecified
CPT/HCPCS: 71046; 80053; 83735; 83880; 84100; 84484; 85025; 93005; 94150; 94640; 96374; 99284; J2930

== ENCOUNTER 2019-02-11 12:55 | Observation (INO) | payer SELFPAY ==
[2019-02-11 12:55] VITALS: BMI 26.6
[2019-02-11] MEDS ORDERED: Albuterol-Ipratrop 3 mg / 0.5 (3 ml) UD INH STA (14:31)
[2019-02-11 15:32] LABS: BASO # 0.1 K/uL (0.0-0.2); BASO % 0.6 % (0.0-2.0); EOS % 10.8 % (0.0-4.0); HEMOGLOBIN 14.2 g/dL (12.0-18.0); LYMPH % 11.8 % (20.0-40.0); MEAN CELL VOLUME 83.3 fl (80.0-94.0); MEAN CORPUSCULAR HEMOGLOBIN 28.4 pg (27.0-31.0); MEAN CORPUSCULAR HGB CONC 34.1 g/dL (33.0-37.0); MEAN PLATELET VOLUME 8.8 fl (7.2-11.7); MONO # 0.7 K/uL (0.0-0.8); MONO % 8.3 % (0.0-10.0); NEUT % 68.5 % (50.0-75.0); RBC 5.01 Mil/uL (4.40-5.90); RED CELL DISTRIBUTION WIDTH 13.2 % (11.5-14.5); WHITE BLOOD COUNT 8.8 K/uL (4.8-10.8)
--- NOTE | 2019-02-11 15:56 | RAD ---
Date of service: 02/11/2019 HISTORY: Shortness of breath and weakness COMPARISON: 01/12/2019. TECHNIQUE: Chest PA and lateral FINDINGS: LINES AND TUBES: None. LUNG AND PLEURA: The lungs are well inflated and clear. There is subsegmental atelectasis in the lower lobes. No pleural effusion or pneumothorax. HEART AND MEDIASTINUM: The heart is not enlarged. No aortic atherosclerotic calcifications present. The hilar and mediastinal contours are within normal limits. SKELETAL STRUCTURES: The bony structures are within normal limits for the patient's age. VISUALIZED UPPER ABDOMEN: Normal. OTHER FINDINGS: None. IMPRESSION: No active pulmonary disease.
[2019-02-11 16:04] LABS: ALB/GLOB RATIO 1.3 (1.0-2.1); ALBUMIN 4.4 g/dL (3.5-5.0); ALT/SGPT 26 U/L (21-72); AST/SGOT 28 U/L (17-59); BLOOD UREA NITROGEN 16 mg/dl (9-20); CALCIUM 9.9 mg/dL (8.4-10.2); GFR NON-AFRICAN AMERICAN > 60
--- NOTE | 2019-02-11 16:38 | ED PDOC ---
HPI: SOB/CHF/COPD Time Seen by Provider: 02/11/19 14:30 Chief Complaint (Nursing): Shortness Of Breath Chief Complaint (Provider): SHORTNESS OF BREATH COUGH History Per: Patient History/Exam Limitations: no limitations Onset/Duration Of Symptoms: Days Current Symptoms Are (Timing): Still Present Initiating Event: Upper Respiratory Illness Exacerbating Factor(s): Coughing Current Respiratory Medications: Albuterol Severity: Mild Associated Symptoms: Chills, Productive Cough. denies: Fever Recently: Seen In ED Additional History Per: Patient Additional Complaint(s): 58 Y/O MALE PRESENTS TO THE ED C/O PRODUCTIVE COUGH, SHORTNESS OF BREATH AND WHEEZING FOR 3 DAYS AND CHILLS. PT STATES HE WAS SEEN HERE A FEW WEEKS AGO FOR SAME HE WAS GIVEN "ANTIBIOTICS" AND PREDNISONE WITH IMPROVEMENT UNTIL 3 DAYS AGO. PT DENIES HX OF INTUBATION OR ADMISSION FOR ASTHMA EXAC IN PAST. Past Medical History Vital Signs: Last Vital Signs Temp 100.0 F H 02/11/19 14:40 Pulse 84 02/11/19 13:01 Resp 20 02/11/19 13:01 BP 165/91 H 02/11/19 13:01 Pulse Ox 96 02/11/19 13:14 DAVID Report Viewed: No - Medical History PMH: Asthma, HTN, Hypercholesterolemia Denies: Chronic Kidney Disease - Surgical History Surgical History: Appendectomy - Family History Family History: States: Unknown Family Hx - Living Arrangements Living Arrangements: Alone - Social History Ex-Smoker (has not smoked in the last 12 months): No Alcohol: None Drugs: Denies - Immunization History Hx Tetanus Toxoid Vaccination: No Hx Influenza Vaccination: No Hx Pneumococcal Vaccination: No - Home Medications Home Medications: Ambulatory Orders Medication Instructions Recorded Carvedilol [Coreg] 25 mg PO DAILY 10/28/17 amLODIPine [Norvasc] 10 mg PO DAILY #30 tab 11/01/17 Losartan [Cozaar] 100 mg PO DAILY 01/12/18 - Allergies Allergies/Adverse Reactions: Allergies Allergy/AdvReac Type Severity Reaction Status Date / Time seasonal Allergy Mild COUGH Uncoded 01/12/19 14:01 Wells Criteria for PE - Wells Criteria for Pulmonary Embolism Clinical Signs and Symptoms of DVT: No P.E is #1 Diagnosis, or Equally Likely: No Heart Rate >100: No Immobilization at least 3 days;Surgery previous 4 weeks: No Previous, objectively diagnosed PE or DVT: No Hemoptysis: No Malignancy w/treatment within 6 months, or palliative: No Total Score: 0 Review of Systems Constitutional: Positive for: Chills, Malaise. Negative for: Fever Eyes: Negative for: Pain, Eyelid Inflammation ENT: Negative for: Ear Pain, Ear Discharge, Nose Congestion, Mouth Swelling, Throat Swelling Cardiovascular: Positive for: Chest Pain Respiratory: Positive for: Cough, SOB with Exertion, Wheezing Gastrointestinal: Negative for: Nausea, Vomiting, Abdominal Pain, Diarrhea Genitourinary Male: Negative for: Dysuria Neurological: Positive for: Weakness (GENERALIZED ) Physical Exam - Reviewed Nursing Documentation Reviewed: Yes Vital Signs Reviewed: Yes - Physical Exam Appears: Positive for: Well, Non-toxic, No Acute Distress Head Exam: Positive for: ATRAUMATIC, NORMAL INSPECTION, NORMOCEPHALIC Skin: Positive for: Normal Color, Warm, DRY Eye Exam: Positive for: EOMI, Normal appearance, PERRL ENT: Positive for: Normal ENT Inspection Neck: Positive for: Normal, Painless ROM Cardiovascular/Chest: Positive for: Regular Rate, Rhythm Respiratory: Positive for: Wheezing Pulses-Radial (L): 2+ Pulses-Radial (R): 2+ Gastrointestinal/Abdominal: Positive for: Normal Exam, Soft Back: Positive for: Normal Inspection Extremity: Positive for: Normal ROM Neurological/Psych: Positive for: Awake, Alert, Normal Tone, Age Appropriate, Oriented - Laboratory Results Result Diagrams: 02/11/19 15:15 02/11/19 15:15 Lab Results: Troponin I < 0.0120 ng/mL (0.00-0.120) 02/11/19 15:15 Total Bilirubin 0.3 mg/dl (0.2-1.3) 02/11/19 15:15 AST 28 U/L (17-59) 02/11/19 15:15 ALT 26 U/L (21-72) 02/11/19 15:15 Alkaline Phosphatase 72 U/L (38-126) 02/11/19 15:15 Total Protein 7.8 G/DL (6.3-8.2) 02/11/19 15:15 Albumin 4.4 g/dL (3.5-5.0) 02/11/19 15:15 Globulin 3.4 gm/dL (2.2-3.9) 02/11/19 15:15 Albumin/Globulin Ratio 1.3 (1.0-2.1) 02/11/19 15:15 - ECG O2 Sat by Pulse Oximetry: 96 - Progress ED Course And Treament: CBC CMP TROPONIN CXR DUONEB X3 PREDNISONE 60MG PO ALBUTEROL X2 1700: PT REEVALUATED AT THIS TIME PT STATES HE FEELS BETTER. o2SAT ON RM AIR IS 93% , WHEEZING BILATERALLY. PT TO BE GIVEN ALBUTEROL X2 AND REEVALUATE. 1810: Pt re-evaluated, repeat vitals: temp: 97.9 hr:67 b/p:168/95 rr: 24 o2sat: 93% rm air. ambulating O2sat: 91-92%. Case discussed with Dr. Amador. Pt for observation admission for asthma exacerbation under Dr. Kirti Rodriguez MD aware and will examine patient. Re-evaluation Time: 17:00 Condition: Re-examined, Unchanged Disposition - Clinical Impression Clinical Impression: Asthma exacerbation - Patient ED Disposition Is Patient to be Admitted: No Counseled Patient/Family Regarding: Diagnosis - Disposition Disposition Time: 18:10 Condition: CRITICAL - Pt Status Changed To: Hospital Disposition Of: Observation - POA Present On Arrival: None
[2019-02-11] MEDS ORDERED: Albuterol 0.083% Inhal Sol (2.5 mg/3 mL) UD INH STA (17:05)
[2019-02-11] MEDS ORDERED: Albuterol 0.083% Inhal Sol (2.5 mg/3 mL) UD ONE (17:45)
--- NOTE | 2019-02-11 19:33 | CP.PCM.HP ---
History of Present Illness - History of Present Illness History of Present Illness: 58 y/o M with a PMHx of HTN and chronic sinusitis presented to ED complaining of 3 days Hx of worsening SOB and productive cough with yellow-green thick sputum. Pt reports he has been using Albuterol nebulizer at home with NO improvement. Pt explains symptoms were intolerable this morning while working; hence, he decided to come. Pt also c/o nasal congestion and weakness. Pt denies chills, chest pain, palpitations, N/V/D, rash or peripheral edema. --Pt reports that recurrent severe episodes of SOB since 1 year ago, at least once a month. Last ED visit 4 weeks ago, was prescribed PO prednisone and Azithromycin with transient improvement of symptoms. Pt is not clear if he has asthma. --Pt has a 15 years chronic Hx of sinusitis and was reported to have nasal polyps. Pt is supposed to see ENT; however, unable to set up appt due to busy work schedule. PMD: [facility] [place]. NKDA Meds: Amlodipine 5mg PO daily, Losartan/HCTZ 100/12.5 PO daily and Carvedilol 12.5 PO BID. PMHx: HTN, chronic sinusitis, nasal polyps. PSHx: Appendectomy 2009 FHx: [place] SHx: Pt quit smoking 15 years ago, used to smoke<1ppd. Occasional alcohol. No rec drugs. ED Course: --VS WNL, O2 sat at 97% at RA. --CBC with eosinophilia 10.8, CMP WNL, negative influenza test. --CXR with no active pulmonary disease. --Duoneb, Albuterol and PO Prednisone 60mg. Present on Admission - Present on Admission Any Indicators Present on Admission: No Review of Systems - Constitutional Constitutional: absent: Fever - EENT Eyes: absent: Change in Vision Nose/Mouth/Throat: Nasal Congestion. absent: Neck Mass - Cardiovascular Cardiovascular: absent: Chest Pain, Dyspnea, Edema - Respiratory Respiratory: Cough, Dyspnea. absent: Hemoptysis - Gastrointestinal Gastrointestinal: absent: Abdominal Pain, Diarrhea, Nausea, Vomiting - Genitourinary Genitourinary: absent: Dysuria, Flank Pain, Hematuria, Pyuria Past Patient History - Infectious Disease Hx of Infectious Diseases: None - Past Medical History & Family History Past Medical History?: Yes - Past Social History Alcohol: None Drugs: Denies - CARDIAC Hx Hypercholesterolemia: Yes Hx Hypertension: Yes - PULMONARY Hx Asthma: Yes - NEUROLOGICAL Hx Neurological Disorder: No - HEENT Hx HEENT Problems: No - RENAL Hx Chronic Kidney Disease: No - ENDOCRINE/METABOLIC Hx Endocrine Disorders: Yes Hx Diabetes Mellitus Type 2: Yes - HEMATOLOGICAL/ONCOLOGICAL Hx Blood Disorders: No - INTEGUMENTARY Hx Dermatological Problems: No - MUSCULOSKELETAL/RHEUMATOLOGICAL Hx Musculoskeletal Disorders: No Hx Falls: No - GASTROINTESTINAL Hx Gastrointestinal Disorders: No - GENITOURINARY/GYNECOLOGICAL Hx Genitourinary Disorders: No - PSYCHIATRIC Hx Psychophysiologic Disorder: No Hx Substance Use: No - SURGICAL HISTORY Hx Appendectomy: Yes - ANESTHESIA Hx Anesthesia: Yes Hx Anesthesia Reactions: No Hx Malignant Hyperthermia: No Meds Allergies/Adverse Reactions: Allergies Allergy/AdvReac Type Severity Reaction Status Date / Time seasonal Allergy Mild COUGH Uncoded 01/12/19 14:01 Physical Exam - Constitutional Appears: No Acute Distress - Head Exam Head Exam: ATRAUMATIC, NORMAL INSPECTION - Eye Exam Eye Exam: EOMI - ENT Exam ENT Exam: Mucous Membranes Moist - Neck Exam Neck exam: Positive for: Full Rom, Meningismus, Normal Inspection - Respiratory Exam Respiratory Exam: Decreased Breath Sounds, Rhonchi, Wheezes. absent: Respir atory Distress - Cardiovascular Exam Cardiovascular Exam: REGULAR RHYTHM, +S1, +S2 - GI/Abdominal Exam GI & Abdominal Exam: Soft. absent: Guarding, Rebound, Rigid, Tenderness - Extremities Exam Extremities exam: Positive for: full ROM, normal inspection. Negative for: calf tenderness, pedal edema, tenderness - Neurological Exam Neurological exam: Alert, Oriented x3 Results - Vital Signs Recent Vital Signs: Last Vital Signs Temp 98.8 F 02/11/19 16:45 Pulse 63 02/11/19 16:45 Resp 11 L 02/11/19 16:45 BP 116/60 02/11/19 16:45 Pulse Ox 96 02/11/19 18:34 - Labs Result Diagrams: 02/11/19 15:15 02/11/19 15:15 Labs: Laboratory Results - last 24 hr 02/11/19 02/11/19 02/11/19 15:05 15:15 15:15 WBC 8.8 RBC 5.01 Hgb 14.2 Hct 41.7 MCV 83.3 MCH 28.4 MCHC 34.1 RDW 13.2 Plt Count 249 MPV 8.8 Neut % (Auto) 68.5 Lymph % (Auto) 11.8 L [place] % (Auto) 8.3 Eos % (Auto) 10.8 H Baso % (Auto) 0.6 Neut # (Auto) 6.0 Lymph # (Auto) 1.0 [place] # (Auto) 0.7 Eos # (Auto) 1.0 H Baso # (Auto) 0.1 Sodium 139 Potassium 3.6 Chloride 102 Carbon Dioxide 26 Anion Gap 15 BUN 16 Creatinine 0.9 Est GFR ( Amer) > 60 Est GFR (Non-Af Amer) > 60 Random Glucose 87 Calcium 9.9 Total Bilirubin 0.3 AST 28 ALT 26 Alkaline Phosphatase 72 Troponin I < 0.0120 Total Protein 7.8 Albumin 4.4 Globulin 3.4 Albumin/Globulin Ratio 1.3 Influenza Typ A,B (EIA) Negative for flu a/b Assessment & Plan - Assessment and Plan (Free Text) Assessment: 58 y/o M with a PMHx of HTN, pre-diabetes and chronic sinusitis is admitted for evaluation and management of dyspnea adn wheezing. PLAN: >Dyspnea and wheezing --Afebrile, vitals stable, no leukocytosis, O2 sat WNL. Low suspicion for pneumonia. --Likely acute asthma exacerbation due to eosinophilia, possibly COPD exacerbation due to Hx of smoking. --CXR with no active pulmonary disease. --Duonebs Q4H, Prednisolone 60mg Q8H and Mucinex BID --F/U symptoms --Considering steroids inhaler upon discharge for better asthma control. >Essential HTN --Chronic --Home meds resumed --F/U vitals >Prediabetes --Last HbA1c 5.7 on 05/24/18. >DVT Prophylaxis --SCD's Case discussed with Kirti Huertas PGY-2. - Date & Time Date: 02/11/19 Time: 18:00
[2019-02-11] MEDS: guaiFENesin-DM 600-30 mg ER Tab PO SCH (19:45)
[2019-02-11] MEDS ORDERED: Albuterol-Ipratrop 3 mg / 0.5 (3 ml) UD ONE (21:45)
[2019-02-11] MEDS: Albuterol-Ipratrop 3 mg / 0.5 (3 ml) UD INH SCH (21:47)
[2019-02-12] MEDS ORDERED: methylPREDNISolone 60 MG in Sodium Chloride 0.9% 50 ML IVPB SCH (01:00)
[2019-02-12 01:19] VITALS: RESP 20
[2019-02-12] MEDS: Albuterol-Ipratrop 3 mg / 0.5 (3 ml) UD INH SCH ×2 (07:26→11:32)
[2019-02-12 08:31] VITALS: TEMP 98; O2SAT 95
[2019-02-12] MEDS ORDERED: Influenza Vaccine 60 mcg/0.5 mL SYR (4YR UP) IM ONE (09:00)
[2019-02-12] MEDS ORDERED: Influenza Vaccine (5 YR UP)/PF 60 MCG/0.5 ML SYR IM ONE (09:00)
[2019-02-12] MEDS: guaiFENesin-DM 600-30 mg ER Tab PO SCH (10:18)
[2019-02-12 10:20] VITALS: BP 137/65; PULSE 67
[2019-02-12] MEDS ORDERED: Fluticasone-Salmeterol 250-50mcg Diskus IH SCH (10:45)
--- NOTE | 2019-02-12 10:46 | CP.PCM.DIS ---
Provider - Provider Date of Admission: 02/11/19 19:05 Attending physician: Kirti Rodriguez DO Primary care physician: Dr. Orosco Consults: 02/12/19 02:43 Social Work Referral Routine Comment: discharge planning Physician Instructions: Reason For Exam: new admit Time Spent in preparation of Discharge (in minutes): 20 Hospital Course - Lab Results Lab Results: Most Recent Lab Values WBC 8.8 K/uL (4.8-10.8) 02/11/19 15:15 RBC 5.01 Mil/uL (4.40-5.90) 02/11/19 15:15 Hgb 14.2 g/dL (12.0-18.0) 02/11/19 15:15 Hct 41.7 % (35.0-51.0) 02/11/19 15:15 MCV 83.3 fl (80.0-94.0) 02/11/19 15:15 MCH 28.4 pg (27.0-31.0) 02/11/19 15:15 MCHC 34.1 g/dL (33.0-37.0) 02/11/19 15:15 RDW 13.2 % (11.5-14.5) 02/11/19 15:15 Plt Count 249 K/uL (130-400) 02/11/19 15:15 MPV 8.8 fl (7.2-11.7) 02/11/19 15:15 Neut % (Auto) 68.5 % (50.0-75.0) 02/11/19 15:15 Lymph % (Auto) 11.8 % (20.0-40.0) L 02/11/19 15:15 [place] % (Auto) 8.3 % (0.0-10.0) 02/11/19 15:15 Eos % (Auto) 10.8 % (0.0-4.0) H 02/11/19 15:15 Baso % (Auto) 0.6 % (0.0-2.0) 02/11/19 15:15 Neut # (Auto) 6.0 K/uL (1.8-7.0) 02/11/19 15:15 Lymph # (Auto) 1.0 K/uL (1.0-4.3) 02/11/19 15:15 [place] # (Auto) 0.7 K/uL (0.0-0.8) 02/11/19 15:15 Eos # (Auto) 1.0 K/uL (0.0-0.7) H 02/11/19 15:15 Baso # (Auto) 0.1 K/uL (0.0-0.2) 02/11/19 15:15 Sodium 139 mmol/l (132-148) 02/11/19 15:15 Potassium 3.6 MMOL/L (3.6-5.0) 02/11/19 15:15 Chloride 102 mmol/L (98-107) 02/11/19 15:15 Carbon Dioxide 26 mmol/L (22-30) 02/11/19 15:15 Anion Gap 15 (10-20) 02/11/19 15:15 BUN 16 mg/dl (9-20) 02/11/19 15:15 Creatinine 0.9 mg/dl (0.8-1.5) 02/11/19 15:15 Est GFR ( Amer) > 60 02/11/19 15:15 Est GFR (Non-Af Amer) > 60 02/11/19 15:15 Random Glucose 87 mg/dL (75-110) 02/11/19 15:15 Calcium 9.9 mg/dL (8.4-10.2) 02/11/19 15:15 Total Bilirubin 0.3 mg/dl (0.2-1.3) 02/11/19 15:15 AST 28 U/L (17-59) 02/11/19 15:15 ALT 26 U/L (21-72) 02/11/19 15:15 Alkaline Phosphatase 72 U/L (38-126) 02/11/19 15:15 Troponin I < 0.0120 ng/mL (0.00-0.120) 02/11/19 15:15 Total Protein 7.8 G/DL (6.3-8.2) 02/11/19 15:15 Albumin 4.4 g/dL (3.5-5.0) 02/11/19 15:15 Globulin 3.4 gm/dL (2.2-3.9) 02/11/19 15:15 Albumin/Globulin Ratio 1.3 (1.0-2.1) 02/11/19 15:15 Influenza Typ A,B (EIA) Negative for flu a/b (NEGATIVE) 02/11/19 15:05 - Hospital Course Hospital Course: 58 y/o M with PMHx of HTN ,chronic sinusitis , ex smoker ( quit 20 years ago ) presented to ED complaining of 3 day history of worsening SOB with productive cough with yellow-green thick sputum with wheezing . He gives history of recurrent symptoms at least once a month for almost 1 year. He was started on Steroid inhaler but stopped taking because could not afford it He had been using Albuterol nebulizer at home with NO improvement.he josé was seen in ER 1 month ago and started on Prednisone PO and Zithromycin In ER found to have dyspnea with wheezing , Decreased air entry bilaterally , Peak Flow 100 ml, Afebrile and with normal WBC CXR showed no active disease He was admitted with diagnosis of Asthma/ COPD exacerbation started on Methylprednisolone IV, Duonebs, and O2 Patient clinically improved . Still with some rhonchi and scattered wheezing but saturating 95 % in RA and RR 20 Will discharge patient home on Prednisone 30 mg po daily for 1 week, Albuterol PRN , Advair pump 250/50 1 puff Q12 and Augmentin Po Patient to follow up with [facility] / PMD in 1 week Will need outpatient PFT once stable to evaluate for COPD Dx 1.Asthma/COPD exacerbation -- unclear severity Will need follow up with PMD PFT as outpatient Started on Prednisone Advair, Albuterol PRN 2.Acute Bronchitis and sinusitis-- started Augmentin PO 3. Hypertension - chronic , controlled. Continue home medications . Discharge Exam - Head Exam Head Exam: ATRAUMATIC, NORMAL INSPECTION - Eye Exam Eye Exam: EOMI, Normal appearance, PERRL Pupil Exam: NORMAL ACCOMODATION - ENT Exam ENT Exam: Mucous Membranes Moist, Normal Exam - Neck Exam Neck exam: Full Rom, Normal Inspection - Respiratory Exam Respiratory Exam: Clear to PA & Lateral, Rhonchi, Wheezes (scattered wheezing ), NORMAL BREATHING PATTERN. absent: Accessory Muscle Use, Respiratory Distress - Cardiovascular Exam Cardiovascular Exam: REGULAR RHYTHM, RRR, +S1, +S2. absent: JVD - GI/Abdominal Exam GI & Abdominal Exam: Normal Bowel Sounds, Soft. absent: Distended, Guarding, Rebound, Tenderness - Rectal Exam Rectal Exam: Deferred - Extremities Exam Extremities exam: normal capillary refill, normal inspection, pedal pulses present - Back Exam Back exam: NORMAL INSPECTION - Neurological Exam Neurological exam: Alert, CN II-XII Intact, Oriented x3 - Psychiatric Exam Psychiatric exam: Normal Affect, Normal Mood - Skin Skin Exam: Dry, Intact, Normal Color, Warm Discharge Plan - Discharge Medications Prescriptions: Amoxicillin/Clavulanate [Augmentin 875 MG-125 MG] 1 tab PO Q12 #14 tab guaiFENesin/Dextromethorphan [Mucinex-DM 600-30 mg] 2 tab PO BID #20 tab Prednisone 30 mg PO DAILY #21 tab.ds.pk - Follow Up Plan Condition: STABLE Disposition: HOME/ ROUTINE Patient education suggested?: Yes Additional Instructions: PFT as out patient Referrals: [facility] [place] [Outside]
[2019-02-12] MEDS ORDERED: Pneumococcal 23-Valent Vaccine IM ONE (11:00)
--- NOTE | 2019-02-12 19:09 | CARD ---
APPROVED REPORT Date of service: 02/11/2019 EKG Measurement Heart [id number] <Conclusion> Normal sinus rhythm Normal ECG
== END 2019-02-12 14:14 | disposition home or self-care (01) ==
LOC: H.ER 12:55 → H.ERHOLD 19:05 → H.MEDSURG1 23:25
PROVIDERS: ADMIT Student in an Organized Health Care Education/Training Program; ATTEND Student in an Organized Health Care Education/Training Program
DX: J44.1 Chronic obstructive pulmonary disease with (acute) exacerbation (principal); J45.901 Unspecified asthma with (acute) exacerbation; J44.0 Chronic obstructive pulmonary disease with (acute) lower respiratory infection; J32.9 Chronic sinusitis, unspecified; I10 Essential (primary) hypertension; Z87.891 Personal history of nicotine dependence; J20.9 Acute bronchitis, unspecified; E78.00 Pure hypercholesterolemia, unspecified; R73.03 Prediabetes; Z23 Encounter for immunization
CPT/HCPCS: 71046; 80053; 84484; 85025; 87040; 87804; 90471; 90674; 90732; 93005; 94640; 99285; G0008; G0378; J2930

== ENCOUNTER 2019-03-23 08:44 | Emergency (ER) | payer SELFPAY ==
[2019-03-23 08:50] VITALS: TEMP 98.3; BMI 26.4
[2019-03-23] MEDS ORDERED: Albuterol-Ipratrop 3 mg / 0.5 (3 ml) UD INH STA ×4 (09:10→10:21)
--- NOTE | 2019-03-23 09:19 | ED PDOC ---
HPI: Asthma Time Seen by Provider: 03/23/19 09:04 Chief Complaint (Nursing): Cough, Cold, Congestion Chief Complaint (Provider): Asthma Exacerbation History Per: Patient History/Exam Limitations: no limitations Onset/Duration Of Symptoms: Other (Today) Associated Symptoms: denies: Cough, Fever Additional Complaint(s): 58 years old male with a history of asthma presents to ER for evaluation of asthma exacerbation onset today. Patient reports allergy symptoms started last week while wheezing started today. He states his home medication has not been helping. Patient states he is unsure of what triggered asthma. He reports he was admitted 4 times before for asthma exacerbation with no previous intubation. Patient denies fever, cough and recent illnesses. PMD: Julian Reynolds Past Medical History Reviewed: Historical Data, Nursing Documentation, Vital Signs Vital Signs: Last Vital Signs Temp 98.3 F 03/23/19 08:58 Pulse 72 03/23/19 08:58 Resp 19 03/23/19 08:58 BP 121/67 03/23/19 08:58 Pulse Ox 93 L 03/23/19 08:58 Primary Care Provider: Julian Reynolds - Medical History PMH: Asthma, HTN, Hypercholesterolemia Denies: Chronic Kidney Disease - Surgical History Surgical History: Appendectomy (2012) - Family History Family History: States: Unknown Family Hx - Social History Current smoker - smoking cessation education provided: No Alcohol: None Drugs: Denies - Immunization History Hx Tetanus Toxoid Vaccination: No Hx Influenza Vaccination: No Hx Pneumococcal Vaccination: No - Home Medications Home Medications: Ambulatory Orders Medication Instructions Recorded Carvedilol [Coreg] 25 mg PO DAILY 10/28/17 amLODIPine [Norvasc] 10 mg PO DAILY #30 tab 11/01/17 Losartan [Cozaar] 100 mg PO DAILY 01/12/18 Amoxicillin/Clavulanate [Augmentin 1 tab PO Q12 #14 tab 02/12/19 875 MG-125 MG] Fluticasone/Salmeterol 250/50 1 puff IH Q12 puff 02/12/19 [Advair Diskus 250/50] Prednisone 30 mg PO DAILY #21 tab.ds.pk 02/12/19 guaiFENesin/Dextromethorphan 2 tab PO BID #20 tab 02/12/19 [Mucinex-DM 600-30 mg] Albuterol HFA [Ventolin HFA 90 2 puff IH [id number] #1 pump 03/23/19 mcg/actuation (8 g)] Cetirizine HCl [Zyrtec] 10 mg PO DAILY #30 tab.rapdis 03/23/19 predniSONE [predniSONE Tab] 40 mg PO DAILY #10 tab 03/23/19 - Allergies Allergies/Adverse Reactions: Allergies Allergy/AdvReac Type Severity Reaction Status Date / Time seasonal Allergy Mild COUGH Uncoded 01/12/19 14:01 Review of Systems ROS Statement: Except As Marked, All Systems Reviewed And Found Negative Constitutional: Negative for: Fever Respiratory: Positive for: Wheezing (Asthma exacerbation). Negative for: Cough Physical Exam - Reviewed Nursing Documentation Reviewed: Yes Vital Signs Reviewed: Yes - Physical Exam Appears: Positive for: Well, No Acute Distress Head Exam: Positive for: ATRAUMATIC, NORMOCEPHALIC Skin: Positive for: Normal Color, Warm, Dry Eye Exam: Positive for: Normal appearance, EOMI, PERRL ENT: Positive for: Normal ENT Inspection Neck: Positive for: Normal, Painless ROM, Supple Cardiovascular/Chest: Positive for: Regular Rate, Rhythm. Negative for: Murmur Respiratory: Positive for: Wheezing (Bilateral), Other (Decreased air entry. O2Sat fluctuates from 92-96%) Gastrointestinal/Abdominal: Positive for: Normal Exam, Soft. Negative for: Tenderness Back: Positive for: Normal Inspection. Negative for: L CVA Tenderness, R CVA Tenderness Extremity: Positive for: Normal ROM, Pedal Edema. Negative for: Deformity Neurological/Psych: Positive for: Awake, Alert, Oriented (x3) - Laboratory Results Result Diagrams: 03/23/19 12:09 03/23/19 12:09 - ECG O2 Sat by Pulse Oximetry: 93 (RA) Pulse Ox Interpretation: Abnormal Medical Decision Making Medical Decision Making: Time: 908 MDM: Acute asthma exacerbation --Saturation --Duoneb and SOLU-Medrol --Will obtain blood work and x-ray if symptoms did not improve 1048 CXR FINDINGS: LUNGS: No active pulmonary disease. No consolidation. Lung volumes slightly increased. PLEURA: No significant pleural effusion identified. No pneumothorax apparent. CARDIOVASCULAR: There is presence of aortic atherosclerotic calcification on x-ray. Normal cardiac size. No pulmonary vascular congestion. OSSEOUS STRUCTURES: Thoraco lumbar spondylosis. VISUALIZED UPPER ABDOMEN: Normal. OTHER FINDINGS: None. IMPRESSION: No acute cardiopulmonary pathology noted. Specifically no consolidative infiltrate/pneumonia appreciated Other findings as above. 1326 Labs reviewed and normal. Patient now has O2Sat in upper 90s. Patient reports feeling better and will be discharged home with a prescription of prednisone for 5 days. Instructions provided to followup with PMD before the end of the week. ------ Scribe Attestation: Documented by Elise Woodard, acting as a scribe for Fanta Vasquez MD. Provider Scribe Attestation: All medical record entries made by the Scribe were at my direction and personally dictated by me. I have reviewed the chart and agree that the record accurately reflects my personal performance of the history, physical exam, medical decision making, and the department course for this patient. I have also personally directed, reviewed, and agree with the discharge instructions and disposition. Disposition - Clinical Impression Clinical Impression: Asthma, Asthma exacerbation - Patient ED Disposition Is Patient to be Admitted: No - Disposition Disposition: Routine/Home Disposition Time: 13:26 Condition: IMPROVED Prescriptions: Albuterol HFA [Ventolin HFA 90 mcg/actuation (8 g)] 2 puff IH [id number] #1 pump Cetirizine HCl [Zyrtec] 10 mg PO DAILY #30 tab.rapdis predniSONE [predniSONE Tab] 40 mg PO DAILY #10 tab Instructions: Asthma, Adult (DC) Forms: [employer] (Kazakh) Print Language: ESTONIAN
[2019-03-23] MEDS ORDERED: Albuterol-Ipratrop 3 mg / 0.5 (3 ml) UD ONE (10:28)
--- NOTE | 2019-03-23 10:52 | RAD ---
Date of service: 03/23/2019 HISTORY: cough COMPARISON: 02/11/2019 TECHNIQUE: Chest PA and lateral views FINDINGS: LUNGS: No active pulmonary disease. No consolidation. Lung volumes slightly increased. PLEURA: No significant pleural effusion identified. No pneumothorax apparent. CARDIOVASCULAR: There is presence of aortic atherosclerotic calcification on x-ray. Normal cardiac size. No pulmonary vascular congestion. OSSEOUS STRUCTURES: Thoraco lumbar spondylosis. VISUALIZED UPPER ABDOMEN: Normal. OTHER FINDINGS: None. IMPRESSION: No acute cardiopulmonary pathology noted. Specifically no consolidative infiltrate/pneumonia appreciated Other findings as above.
[2019-03-23] MEDS ORDERED: Magnesium Sulfate 2 gm/50 ml 2 GM/50 ML BAG IVPB ONE (11:40)
[2019-03-23 12:14] LABS: BASO % 0.7 % (0.0-2.0); EOS # 0.6 K/uL (0.0-0.7); EOS % 12.7 % (0.0-4.0); HEMOGLOBIN 13.5 g/dL (12.0-18.0); LYMPH # 0.7 K/uL (1.0-4.3); LYMPH % 15.3 % (20.0-40.0); MEAN CORPUSCULAR HEMOGLOBIN 27.9 pg (27.0-31.0); MEAN CORPUSCULAR HGB CONC 33.2 g/dL (33.0-37.0); MEAN PLATELET VOLUME 9.1 fl (7.2-11.7); MONO # 0.6 K/uL (0.0-0.8); NEUT # 2.5 K/uL (1.8-7.0); NEUT % 58.3 % (50.0-75.0); NRBC % 0.1 % (0.0-0.0); RBC 4.84 Mil/uL (4.40-5.90); RED CELL DISTRIBUTION WIDTH 13.8 % (11.5-14.5); WHITE BLOOD COUNT 4.3 K/uL (4.8-10.8)
[2019-03-23 12:49] LABS: BLOOD UREA NITROGEN 17 mg/dl (9-20); CALCIUM 8.8 mg/dL (8.4-10.2); GFR NON-AFRICAN AMERICAN > 60
[2019-03-23 13:00] LABS: VENOUS BLOOD GAS BASE EXCESS 3.6 mmol/L (0.0-2.0); VENOUS BLOOD GAS PCO2 43 mmHg (40-60); VENOUS BLOOD GAS PO2 42 mm/Hg (30-55); VENOUS BLOOD PH 7.43 (7.32-7.43)
[2019-03-23] MEDS ORDERED: Magnesium Sulfate 2 gm/50 ml 2 GM/50 ML BAG ONE (13:31)
[2019-03-23 14:58] VITALS: BP 134/68; PULSE 84; RESP 16; O2SAT 97
== END 2019-03-23 14:58 | disposition home or self-care (01) ==
LOC: H.ER 08:44
DX: J45.901 Unspecified asthma with (acute) exacerbation (principal); I10 Essential (primary) hypertension; Z79.899 Other long term (current) drug therapy; E78.00 Pure hypercholesterolemia, unspecified
CPT/HCPCS: 71046; 80048; 82803; 82948; 85025; 94150; 94640; 96365; 96375; 99285; J2930